=== PATIENT | male | born 1945 | race Caucasian/White ===

== ENCOUNTER 2017-06-12 13:35 | Emergency (ER) | payer MEDICARE, BC ==
[~2017-06-12] VITALS: Ht 185.4 cm; Wt 156.5 kg
[2017-06-12] MEDS ORDERED: METF500T4 (14:16)
[2017-06-12] MEDS ORDERED: LEVO50TA6 (14:16)
[2017-06-12] MEDS ORDERED: NIAC-4 (14:16)
[2017-06-12] MEDS ORDERED: OLOP2.5D (14:16)
[2017-06-12] MEDS ORDERED: EMPA1TAB3 (14:16)
[2017-06-12] MEDS ORDERED: ENAL20TA (14:16)
[2017-06-12] MEDS ORDERED: ROSU20TA (14:16)
[2017-06-12] MEDS ORDERED: TIMO5DRO5 (14:16)
[2017-06-12] MEDS ORDERED: INSU100I29 (14:16)
[2017-06-12] MEDS ORDERED: OLOP2.5D5 (14:16)
[2017-06-12] MEDS ORDERED: FURO20TA4 (14:16)
[2017-06-12] MEDS ORDERED: TADA20TA (14:16)
[2017-06-12] MEDS ORDERED: TIMO5DRO27 (14:16)
[2017-06-12] MEDS ORDERED: POTA10TA10 (14:16)
[2017-06-12] MEDS ORDERED: HYDR25TA4 (14:16)
[2017-06-12] MEDS ORDERED: EPIN5DRO10 (14:16)
--- NOTE | 2017-06-12 14:51 | ED Fall/Injury ---
General Chief Complaint: Upper Extremity Stated Complaint: L SHOULDER PAIN - FALL Nursing Triage Note: AMBULATED TO ROOM 06 WITH COMPLAINTS OF LEFT SHOULDER PAIN. STATES HE SLIPPED ON THE STAIRS HITTING HIS HEAD AND LEFT SHOULDER. DENIES LOC. STATES HE TAKES A LOW DOSE ASA DAILY. Source: patient, spouse Exam Limitations: no limitations History of Present Illness Time seen by provider: 14:47 Initial Comments Patient was going down a flight of steps and stumbled falling about 2 or 3 steps landing on his left shoulder and hitting his head. He did not lose consciousness haven't headache or any nausea or vomiting. He has no hematoma or swelling oror abrasions on his head. He is not on blood thinners. He is take aspirin however. He was unable to move his left arm at the shoulder second or pain. He can move his fingers and feel them okay however and is afraid that his left shoulder is either broken or out of place. He is having significant amount pain. Allergies and Home Medications Allergies Coded Allergies: Sulfa (Sulfonamide Antibiotics) (Verified Allergy, Unknown, 06/12/17) Home Medications Empagliflozin/Linagliptin 1 Each Tablet, #30 (Reported) Enalapril Maleate 20 Mg Tablet, #60 (Reported) Epinastine HCl 5 Ml Drops, #5 (Reported) Furosemide 20 Mg Tablet, #180 (Reported) Hydrochlorothiazide 25 Mg Tablet, #60 (Reported) Insulin Detemir 100 Unit/1 Ml Insuln.pen, #195 (Reported) Levothyroxine Sodium 50 Mcg Tablet, #30 (Reported) Metformin HCl 500 Mg Tablet, #120 (Reported) Niacin 500 Mg Tab.er.24h, #60 (Reported) Olopatadine HCl 2.5 Ml Drops, #3 (Reported) Olopatadine HCl 2.5 Ml Drops, #3 (Reported) Potassium Chloride 10 Meq Tablet.er, #90 (Reported) Rosuvastatin Calcium 20 Mg Tablet, #60 (Reported) Tadalafil 20 Mg Tablet, #10 (Reported) Timolol 5 Ml Drops, #5 (Reported) Timolol Maleate 5 Ml Drops, #5 (Reported) Constitutional: No chills, No diaphoresis, No fever, No malaise Eyes: Denies Blindness, Denies Blurred Vision, Denies Pain Ears, Nose, Mouth, Throat: denies ear pain, denies ear discharge Respiratory: No cough, No short of breath Cardiovascular: No chest pain, No Hx of Intervention, No palpitations Gastrointestinal: No abdominal pain, No constipation, No diarrhea, No nausea Genitourinary: No discharge, No dysuria Musculoskeletal: see HPI, No back pain, joint pain (left shoulder) Skin: No pruritus, No rash Psychiatric/Neurological: Denies Headache, Denies Numbness Past [place] Hx Patient Social History Alcohol Use: Denies Use Recreational Drug Use: No Smoking Status: Former Smoker Recent Foreign Travel: No Contact w/Someone Who Travel: No Recent Infectious Disease Expo: No Recent Hopitalizations: No Cardiovascular Cardiac Disorders: Hypertension Endocrine Endocrine Disorders: Diabetes, Insulin dep Physical Exam Vital Signs Vital Sign - Last 12Hours 06/12/17 14:00 Temp 98.0 Pulse 58 Resp 16 B/P (MAP) 150/83 Pulse Ox 94 Capillary Refill : Less Than 3 Seconds General Appearance: WD/WN, mild distress HEENT: PERRL/EOMI, pharynx normal Neck: non-tender, full range of motion, supple, normal inspection Cardiovascular: normal peripheral pulses, regular rate, rhythm, no edema Respiratory: chest non-tender, lungs clear Peripheral Pulses: 4+ Radial Pulses (R), 4+ Radial Pulses (L) Gastrointestinal: normal bowel sounds, non tender, soft Extremities: no pedal edema, normal capillary refill, other (left shoulder immobilized secondary to pain. Tenderness along the surgical neck of the humerus on the left side with mild deformity.) Neurologic/Psychiatric: no motor/sensory deficits, alert, oriented x 3, other ( neurovascularly intact distal to the left shoulder.) Skin: normal color, warm/dry Progress/Results/Core Measures Results/Orders My Orders Orders - TRINO ROSALES Shoulder, Left, 3 Views (06/12/17 14:52) Ct Head Wo (06/12/17 14:52) Fentanyl Injection (Sublimaze Injection (06/12/17 14:52) Saline Lock/Iv-Start (06/12/17 14:52) Vital Signs/I&O Vital Sign - Last 12Hours 06/12/17 14:00 Temp 98.0 Pulse 58 Resp 16 B/P (MAP) 150/83 Pulse Ox 94 Blood Pressure Mean: 105 Diagnostic Imaging Diagonstic Imaging: Xray Plain Films/CT/US/NM/MRI: other (left shoulder) Comments Proximal humerus fracture at the surgical neck on the left side with comminuted displacement of about 1-1/2 cm. Nonlinear fracture. NAME: MIKE LESLIE [facility] REC#: [id number] PHYSICIAN: TRINO ROSALES MD CC: PAIGE RAYMOND; TRINO ROSALES Page 1 of 1 RADIOLOGY REPORT VIA [place] CC: PAIGE RAYMOND; TRINO ROSALES Page 1 of 1 RADIOLOGY REPORT NAME: MIKE LESLIE [facility] REC#: [id number] PT STATUS: REG ER : 1945 PHYSICIAN: TRINO ROSALES MD ADMIT DATE: 06/12/17/ER Signed Date of Exam: 06/12/17 SHOULDER, LEFT, 3 VIEWS INDICATION: Left shoulder injury, pain. COMPARISON: None. FINDINGS: 3 views of left shoulder demonstrate a comminuted displaced fracture of the proximal humeral head and neck. There is no dislocation. The AC joint is intact. IMPRESSION: Left proximal humeral fracture. Dictated by: Dictated on workstation # [id number] Dict: 06/12/17 1532 Trans: 06/12/17 1542 Interpreted by: PAIGE RAYMOND Electronically signed by: PAIGE RAYMOND 06/12/17 1542 Reviewed: Reviewed by Me Diagonstic Imaging: CT Plain Films/CT/US/NM/MRI: head Comments No midline shift, mass effect, tumor, or intraparenchymal bleed. NAME: MIKE LESLIE [facility] REC#: [id number] PHYSICIAN: TRINO ROSALES MD CC: APIGE RAYMOND; TRINO ROSALES Page 1 of 1 RADIOLOGY REPORT VIA [place] CC: PAIGE RAYMOND; TRINO ROSALES Page 1 of 1 RADIOLOGY REPORT NAME: MIKE LESLIE [facility] REC#: [id number] PT STATUS: REG ER : 1945 PHYSICIAN: TRINO ROSALES MD ADMIT DATE: 06/12/17/ER Signed Date of Exam: 06/12/17 CT HEAD WO PROCEDURE: CT head without contrast. TECHNIQUE: Multiple contiguous axial images were obtained through the brain without the use of intravenous contrast. INDICATION: Fall, headache. COMPARISON: None. FINDINGS: Ventricles are normal in size, shape and position. There is no midline shift or mass effect. There is no hemorrhage or evidence of acute ischemia. No cerebral edema. There is no skull fracture. Mastoid air cells are clear. There is an air-fluid level in the left maxillary sinus. IMPRESSION: 1. No acute intracranial abnormality. 2. Left maxillary sinus disease. Dictated by: Dictated on workstation # [id number] Dict: 06/12/17 1535 Trans: 06/12/17 1542 Interpreted by: PAIGE RAYMOND Electronically signed by: PAIGE RAYMOND 06/12/17 1542 Reviewed: Reviewed by Me Departure Impression Impression: Primary Impression: Proximal humerus fracture Qualified Codes: S42.202A - Unspecified fracture of upper end of left humerus , initial encounter for closed fracture Additional Impression: Fall (on) (from) other stairs and steps, initial encounter Disposition: 01 HOME, SELF-CARE Condition: Improved Departure-Patient Inst. Decision time for Depature: 15:48 Referrals: ANDERSON BARNARD MD (PCP) Primary Care Physician Patient Instructions: Shoulder Fracture (DC) Add. Discharge Instructions: Wear the sling until released by your orthopedic surgeon. If you're having pain you can apply ice to the site and use 325 mg of Tylenol every 6 hours as needed. You can also use Naprosyn 2 capsules twice a day or ibuprofen 4 tablets every 8 hours. If this is not controlling your pain you can also use one half to one tablet of Percocet 10/325 mg every 6 hours as needed. While you're on Percocet you will have increased confusion and constipation. Do not mix this with alcohol and do not driving long road trips or operate heavy machinery. You should go chart picker some MiraLAX and take at least one dose a day while on opiates. You can go up to 4 times a day to control your constipation. If you' re having nausea you can take one tablet of Zofran and allowed to dissolve in your mouth every 6 hours as needed to control your nausea. You should return to the ER if you lose sensation in your left arm or hand or if you start changing colors in the hand or you have no palpable pulse. Plan to call Dr. Urbano at [address] [place] [address] orthopedics at [phone] Wednesday morning to get an appointment to be seen Wednesday or Wednesday. All discharge instructions reviewed with patient and/or family. Voiced understanding. Scripts Oxycodone HCl/Acetaminophen (Percocet 10-325 mg Tablet) 1 Each Tablet 1 EACH PO Q6H Y for BREAKTHROUGH PAIN, #20 TAB 0 Refills Prov: TRINO ROSALES 06/12/17 Ondansetron (Zofran Odt) 4 Mg Tab.rapdis 4 MG PO Q6H Y for NAUSEA/VOMITING-1ST LINE, #14 TAB 0 Refills Prov: TRINO ROSALES 06/12/17 Copy Copies To 1: ANDERSON BARNARD MD, TITUS J Jun 12, 2017 14:51
[2017-06-12] MEDS ORDERED: fentaNYL INJECTION 100 MCG/2 ML AMP IV STA (14:52)
--- NOTE | 2017-06-12 15:38 | Diagnostic Imaging Report ---
INDICATION: Left shoulder injury, pain. COMPARISON: None. FINDINGS: 3 views of left shoulder demonstrate a comminuted displaced fracture of the proximal humeral head and neck. There is no dislocation. The AC joint is intact. IMPRESSION: Left proximal humeral fracture. Dictated by: Dictated on workstation # [id number]
--- NOTE | 2017-06-12 15:41 | Diagnostic Imaging Report ---
PROCEDURE: CT head without contrast. TECHNIQUE: Multiple contiguous axial images were obtained through the brain without the use of intravenous contrast. INDICATION: Fall, headache. COMPARISON: None. FINDINGS: Ventricles are normal in size, shape and position. There is no midline shift or mass effect. There is no hemorrhage or evidence of acute ischemia. No cerebral edema. There is no skull fracture. Mastoid air cells are clear. There is an air-fluid level in the left maxillary sinus. IMPRESSION: 1. No acute intracranial abnormality. 2. Left maxillary sinus disease. Dictated by: Dictated on workstation # [id number]
[2017-06-12] MEDS ORDERED: ONDA4TAB8 PO (15:53)
[2017-06-12] MEDS ORDERED: OXYC-202 PO (15:53)
[2017-06-12 16:15] VITALS: BP 109/55
[2017-06-12] MEDS ORDERED: fentaNYL INJECTION 100 MCG/2 ML AMP IVP PRN (16:15)
== END 2017-06-12 16:15 | disposition home or self-care (01) ==
LOC: EDUNIT# 13:35 → ER 13:36
DX: S42.202A Unspecified fracture of upper end of left humerus, initial encounter for closed fracture (principal); I10 Essential (primary) hypertension; E11.9 Type 2 diabetes mellitus without complications; Z87.891 Personal history of nicotine dependence; Z79.82 Long term (current) use of aspirin; Z79.4 Long term (current) use of insulin; Z79.84 Long term (current) use of oral hypoglycemic drugs; W10.9XXA Fall (on) (from) unspecified stairs and steps, initial encounter
CPT/HCPCS: 70450; 73030

== ENCOUNTER 2017-06-16 12:30 | Outpatient (CLI) | payer MEDICARE ==
[~2017-06-16] VITALS: Ht 185.4 cm; Wt 159.2 kg
[~2017-06-16 12:30] MED LIST: EMPA1TAB3; ENAL20TA; EPIN5DRO10; FURO20TA4; HYDR25TA4; INSU100I29; LEVO50TA6; METF500T4; NIAC-4; OLOP2.5D; OLOP2.5D5; ONDA4TAB8 PO; OXYC-202 PO; POTA10TA10; ROSU20TA; TADA20TA; TIMO5DRO27; TIMO5DRO5
[2017-06-16 12:49] VITALS: BP 135/61
[2017-06-16 13:51] LABS: BILIRUBIN,URINE NEGATIVE (NEGATIVE); KETONES,URINE NEGATIVE (NEGATIVE); LEUKOCYTE ESTERASE ,URINE NEGATIVE (NEGATIVE); NITRITE,URINE NEGATIVE (NEGATIVE); PH,URINE 7 (5-9); PROTEIN,URINE NEGATIVE (NEGATIVE); UROBILINOGEN,URINE NORMAL (NORMAL)
[2017-06-16 13:59] LABS: PROTHROMBIN TIME PATIENT 12.8 SEC (12.2-14.7)
[2017-06-16 14:02] LABS: SQUAMOUS EPITHELIAL CELL,UR RARE /HPF
[2017-06-16 14:05] LABS: ANION GAP 11 MMOL/L (5-14); BLOOD UREA NITROGEN 17 MG/DL (7-18); BUN/CREATININE RATIO 23; CALCIUM 9.1 MG/DL (8.5-10.1); CARBON DIOXIDE 26 MMOL/L (21-32); CHLORIDE 100 MMOL/L (98-107); CREATININE SERUM 0.75 MG/DL (0.60-1.30); GFR ESTIMATED > 60; GLUCOSE 187 MG/DL (70-105); POTASSIUM 4.1 MMOL/L (3.6-5.0); SODIUM 137 MMOL/L (135-145)
[2017-06-16 14:17] LABS: BASOPHILS # (AUTO) 0.1 10^3/uL (0.0-0.1); BASOPHILS % (AUTO) 1 % (0-10); EOSINOPHILS # (AUTO) 0.4 10^3/uL (0.0-0.3); EOSINOPHILS % (AUTO) 4 % (0-10); LYMPHOCYTES % (AUTO) 31 % (12-44); MEAN CORPUSCULAR HEMOGLOBIN 29 PG (25-34); MEAN CORPUSCULAR HGB CONC 33 G/DL (32-36); MEAN CORPUSCULAR VOLUME 89 FL (80-99); MEAN PLATELET VOLUME 9.9 FL (7.4-10.4); MONOCYTES % (AUTO) 10 % (0-12); NEUTROPHILS # (AUTO) 5.4 X 10^3 (1.8-7.8); NEUTROPHILS % (AUTO) 55 % (42-75); PLATELET COUNT 231 10^3/uL (130-400); RED BLOOD COUNT 4.12 10^6/uL (4.35-5.85); WHITE BLOOD COUNT 9.8 10^3/uL (4.3-11.0)
--- NOTE | 2017-06-16 15:26 | Diagnostic Imaging Report ---
EXAMINATION: PA and lateral chest at 2:12 p.m. INDICATION: Preop. COMPARISON: There are no prior studies available for comparison. FINDINGS: The heart is mildly enlarged. On the PA view, there is a vague area of increased density overlying the periphery of the left lung base near the diaphragm. There is no corresponding abnormality seen on the lateral view and I suspect that that finding is related to a prominent apical epicardial fat pad. It would be unlikely that this finding is secondary to pneumonia/atelectasis or to neoplasm. If previous exams are available, they would be helpful for comparison. If there are no previous studies, then CT of the chest would be recommended for further evaluation. The left upper lung and right lung are generally clear. The mediastinum is not widened. The osseous structures are intact. IMPRESSION: 1. There is mild cardiomegaly but there is no acute abnormality identified. 2. The area of increased density near the apex of the heart is more likely due to an epicardial fat pad than to pneumonia/atelectasis or neoplasm. Recommendations as above. Dictated by: Dictated on workstation # [id number]
== END 2017-06-16 16:00 ==
LOC: PREOP 12:30
PROVIDERS: ATTEND Orthopaedic Surgery
DX: Z01.812 Encounter for preprocedural laboratory examination (principal); Z01.810 Encounter for preprocedural cardiovascular examination; Z01.811 Encounter for preprocedural respiratory examination; Z11.2 Encounter for screening for other bacterial diseases; S42.302A Unspecified fracture of shaft of humerus, left arm, initial encounter for closed fracture; X58.XXXA Exposure to other specified factors, initial encounter; I10 Essential (primary) hypertension
CPT/HCPCS: 36415; 71020; 80048; 81000; 85025; 85610; 86850; 86900; 86901; 87081

== ENCOUNTER → 2017-06-18 | Outpatient (CLI) | payer MEDICARE | LOC: CARD 15:04 | PROVIDERS: ATTEND Internal Medicine Cardiovascular Disease | DX: I48.2 Chronic atrial fibrillation (principal); E11.9 Type 2 diabetes mellitus without complications; E78.4 Other hyperlipidemia; I10 Essential (primary) hypertension | CPT/HCPCS: 93225; 93226 ==

== ENCOUNTER → 2017-06-21 | Outpatient (CLI) | payer MEDICARE | LOC: CARD 11:45 | PROVIDERS: ATTEND Internal Medicine Cardiovascular Disease | DX: I48.2 Chronic atrial fibrillation (principal); E11.9 Type 2 diabetes mellitus without complications; E78.4 Other hyperlipidemia; I10 Essential (primary) hypertension | CPT/HCPCS: 93306 ==

== ENCOUNTER 2017-06-24 11:24 | Day surgery (SDC) | payer MEDICARE ==
[~2017-06-24] VITALS: Ht 185.4 cm; Wt 159.2 kg
[~2017-06-24 11:24] MED LIST changes: -ENAL20TA; +ENAL20TA PO; -FURO20TA4; +FURO20TA4 PO; -HYDR25TA4; +HYDR25TA4 PO; -INSU100I29; +INSU100I29 SQ; -LEVO50TA6; +LEVO50TA6 PO; -METF500T4; +METF500T4 PO; -NIAC-4; +NIAC-4 PO; -OLOP2.5D5; +OLOP2.5D5 OU; -POTA10TA10; +POTA10TA10 PO; -ROSU20TA; +ROSU20TA PO; -TADA20TA; +TADA20TA PO; -TIMO5DRO5; +TIMO5DRO5 OU
[2017-06-24] MEDS ORDERED: ceFAZolin 2 GM/50 ML NS 50 ML ONE (11:35)
[2017-06-24] MEDS ORDERED: FAMOTIDINE 20MG/2ML IV (PEPCID) ONE (11:40)
[2017-06-24] MEDS: LACTATED RINGERS 1,000 ML IV PRN ×2 (11:40→12:50)
[2017-06-24] MEDS ORDERED: MIDAZOLAM 2 MG/2 ML (VERSED) VIAL ONE (11:40)
[2017-06-24] MEDS ORDERED: GLYCOPYRROLATE 0.2 MG/ML (ROBINUL) 2 ML VIAL ONE (11:40)
[2017-06-24] MEDS ORDERED: GENTAMICIN 40 MG/ML 2 ML INJ SDV ONE (11:59)
--- NOTE | 2017-06-24 12:11 | Progress Note-Pre Operative ---
Pre-Operative Progress Note H&P Reviewed The H&P was reviewed, patient examined and no changes noted. Date Seen by Provider: Jun 24, 2017 Time Seen by Provider: 12:10 Date H&P Reviewed: Jun 24, 2017 Time H&P Reviewed: 12:10 Pre-Operative Diagnosis: Left 3 part proximal humeral fracture GUILLERMO KAMARA MD Jun 24, 2017 12:11
[2017-06-24] MEDS ORDERED: NS IV 1000 ML 1,000 ML IV SCH (12:12)
[2017-06-24] MEDS ORDERED: 1/2 NS IV SOLUTION 1,000 ML IV SCH (12:12)
[2017-06-24] MEDS ORDERED: ONDANSETRON 4 MG/2 ML (SDV) Z0FRAN IV PRN ×2 (12:15)
[2017-06-24] MEDS ORDERED: NALOXONE 0.4 MG/ML 1 ML (NARCAN) VIAL IV PRN (12:15)
[2017-06-24] MEDS ORDERED: diphenhydrAMINE 50 MG/ML INJ (BENADRYL) IV PRN (12:15)
[2017-06-24] MEDS ORDERED: METOCLOPRAMIDE INJ 10 MG/2 ML (REGLAN) IV PRN ×2 (12:15)
[2017-06-24] MEDS ORDERED: oxyCODONE/APAP 5/325MG (PERCOCET 5) TABLET PO PRN (12:15)
--- NOTE | 2017-06-24 12:32 | Anesthesia-Peripheral Nerve Bl ---
Procedure Start/Stop Time Date of Procedure: Jun 24, 2017 Start Time: 12:15 Referring Physician: Sundeep Stop Time: 12:25 Peripheral Nerve Block Peripheral Nerve Blockade Risk/Benefits/Alternatives discussed, including IV injection leading to complications or seizures, nerve irritation or damage, pneumothorax, total spinal anesthesia, injection, and/or bleeding. Side Confirmed: LEFT Indication: Analgesia Specifically requested for management of pain by:Sundeep Patient Condition Patient Condition: Sedate/contact maintained Procedure Prepartation: Chlorhexidine Position: Supine [place]: Short-bevel Needle (s) Size: 22g 2" Technique: Injection through needle, Nerve Stimulation Motor response or parethesia o: Motor response Deltoid mA: 0.4 Depth (cm): 2.5 Sedation Given: Midazolam (2mg) Injectate: ropivacaine Concentration %: 0.5 Volume (ml): 30 Narrative Injection was made incrementally with constant monitoring. Aspiration every (mls): 5 Blood Aspirated: No Pain on injection noted: No Normal Resistance on injection: Yes Events Events: None:easy well tolerated Sucess: Full evaluation-pending Patient Conditon Post Peripheral Nerve Block Post Peripheral Nerve Block Vital Signs: Blood Pressure: Systolic Diastolic Heart Rate READING,JUANITA Kumar CRNA Jun 24, 2017 12:32
[2017-06-24] MEDS ORDERED: CATHETER FLUSH 10 ML SYR IV PRN (12:45)
[2017-06-24] MEDS ORDERED: ceFAZolin 2 GM/NS 50 ML IV ONE (12:45)
[2017-06-24] MEDS ORDERED: ATRACURIUM 50 MG/5 ML (TRACRIUM) IV ONE (12:57)
[2017-06-24] MEDS ORDERED: VITAMIN B-12 PO (13:05)
[2017-06-24] MEDS ORDERED: MULT1TAB69 PO (13:05)
[2017-06-24] MEDS ORDERED: FOLIC ACID PO (13:05)
[2017-06-24] MEDS ORDERED: ONDA4TAB11 SL (13:05)
[2017-06-24] MEDS ORDERED: ACET-93 PO (13:05)
[2017-06-24] MEDS ORDERED: FLAX1000 PO (13:05)
[2017-06-24] MEDS ORDERED: HYDR-3816 PO (13:05)
[2017-06-24] MEDS ORDERED: VITAMIN B-6 PO (13:05)
[2017-06-24] MEDS ORDERED: ASPI-983 PO (13:05)
[2017-06-24] MEDS ORDERED: APIX5TAB PO (13:07)
[2017-06-24 13:11] VITALS: BP 146/94
[2017-06-24] MEDS ORDERED: MIDAZOLAM 2 MG/2 ML (VERSED) VIAL IV ONE (13:15)
[2017-06-24] MEDS ORDERED: GLYCOPYRROLATE 0.2 MG/ML (ROBINUL) 2 ML VIAL IV ONE (13:15)
[2017-06-24] MEDS ORDERED: FAMOTIDINE 20MG/2ML IV (PEPCID) IV ONE (13:15)
--- NOTE | 2017-06-24 14:37 | Progress Note-Post Operative ---
Post-Operative Progess Note Surgeon (s)/Nurse Practitioner Per Diem (s) Surgeon GUILLERMO KAMARA MD Nurse Practitioner Per Diem: MEDARDO ESQUIVEL PA-C Pre-Operative Diagnosis Left 3 part proximal humeral fracture Post-Operative Diagnosis same Procedure & Operative Findings Date of Procedure 06/24/17 Procedure Performed/Findings Hemiarthroplasty left shoulder and tuberosity repair Anesthesia Type General endotracheal anesthesia with interscalene nerve block. Estimated Blood Loss Estimated blood loss (mL): 200 ML Specimens/Packing Specimens Removed none Packing: none GUILLERMO KAMARA MD Jun 24, 2017 14:37
--- NOTE | 2017-06-24 14:58 | Discharge Inst-Surgical ---
Discharge Inst-Surgical Depart Medication/Instructions New, Converted or Re-Newed RX: RX on Chart Consults/Follow Up Goal/Follow Up Appt.: Follow up with Dr. Urbano in 10-14 days Patient Instructions: Leave incision open to air if no drainage. Use polar care unit for icing the shoulder as needed for 30 minutes at a time Keep incision dry for 7 days. Then, it is okay to get it wet in the shower. No lifting left shoulder. It is okay to move the wrist, hand, and elbow. Activity Activity as Tolerated: No no lifing left arm. Activity Instructions: Avoid Pulling & Pushing, Avoid Stress to Incision Elevate Extremity: Elevate as Instructed Driving Instructions: No Driving for 2 Weeks No Driving When on Pain Meds: Yes Incentive Spirometry: Every 2 Hours While Awake, For 2 weeks Diet Discharge Diet: ADA Diet Diet for 24 Hours: No Alcohol Diet After 24 Hours: Resume Home Diet Return to The Hospital For: Shortness of breath, chest pain Symptoms to Report to Physicia: Extremity Discoloration, Numbness/Tingling, Swelling Increased, Bleeding Excessive, Pain Increased, Fever Over 101 Degrees F Skin/Wound Care Infection Signs and Symptoms: Increased Redness, Foul Odor of Wound, Increased Drainage, Skin Itchy or Has a Rash Bathing Instructions: Shower Operative Area Clean and Dry: You May Remove Bandage Steristrips: Will Fall Off in 1-2 Wks Polar Care: Yes-As Instructed GUILLERMO URBANO MD Jun 24, 2017 14:58
[2017-06-24] MEDS ORDERED: morphine INJ 10 MG/ML 1ML (SYR OR VIAL) IVP PRN (15:00)
[2017-06-24] MEDS ORDERED: morphine PCA 30 MG/30 ML VIAL IV PRN (15:00)
[2017-06-24 16:00] VITALS: BP 150/71
[2017-06-24] MEDS: oxyCODONE/APAP 10/325MG (PERCOCET 10) TABLET PO PRN ×2 (16:14→21:47)
[2017-06-24] MEDS ORDERED: OLOPATADINE HCL OU PRN (17:00)
[2017-06-24] MEDS ORDERED: ACETAMINOPHEN 500 MG TAB (TYLENOL) PO PRN (17:00)
--- NOTE | 2017-06-24 17:13 | Diagnostic Imaging Report ---
EXAMINATION: AP view of the left shoulder. INDICATION: Postoperative evaluation. FINDINGS: There is a left shoulder replacement prosthesis with the humerus component in good position. There is no glenoid the component identified on this image. The overall alignment based on this single projection appears satisfactory. IMPRESSION: Postsurgical replacement appears in good alignment with the prosthesis seen well-seated in the proximal left humerus. Dictated by: Dictated on workstation # [id number]
[2017-06-24] MEDS ORDERED: PATIENT MAY USE OWN MEDS, ALL MC SCH (17:15)
[2017-06-24] MEDS: ceFAZolin 2 GM/50 ML NS 50 ML IV SCH ×2 (18:00→21:48)
[2017-06-24 19:49] VITALS: BP 143/66
[2017-06-24] MEDS ORDERED: ROSUVASTATIN 20 MG (CRESTOR) TABLET PO SCH (21:00)
[2017-06-24] MEDS: DOCUSATE SODIUM 100 MG (COLACE) CAP PO SCH (21:47)
[2017-06-24] MEDS: metFORMIN 500 MG (GLUCOPHAGE) TAB PO SCH (21:49)
[2017-06-24] MEDS: APIXABAN 5 MG (ELIQUIS) TABLET PO SCH (21:50)
[2017-06-24] MEDS: INSULIN DETEMIR SQ SCH (21:52)
[2017-06-24 23:48] VITALS: BP 141/69
--- NOTE | 2017-06-25 00:29 | OPERATIVE REPORT ---
DATE OF SERVICE: 06/24/2017 PREOPERATIVE DIAGNOSIS: Left 3-part proximal humerus fracture. POSTOPERATIVE DIAGNOSIS: Left 3-part proximal humerus fracture. PROCEDURE: Hemiarthroplasty of left shoulder with repair of lesser and greater tuberosities. SURGEON: GUILLERMO KAMARA MD DENTAL INSURANCE COORDINATOR: MEDARDO ESQUIVEL PA-C DENTAL INSURANCE COORDINATOR'S DUTIES: Patient positioning, retraction, wound closure, application of sterile dressings, use of assist as medically indicated. ANESTHESIA: General with use of an interscalene nerve block as medically indicated for postoperative pain control and an anesthesia provider was consulted for placement of the block. BLOOD LOSS: 200 mL. SPECIMENS: None. COMPLICATIONS: None. IMPLANTS: Integra [employer] hemiarthroplasty with a size 16 pressfit humeral stem, a small proximal fracture body, a 48 x 18 eccentric humeral head. INDICATIONS: This man had a bad fall 10 days ago and sustained a comminuted proximal humerus fracture. He comes to the operating room for repair of the fracture with the hemiarthroplasty. PROCEDURE IN DETAIL: After informed consent, the patient was transported to the operating room. He was placed on the operative table in supine position. General anesthesia was induced. He was positioned supine using the shoulder attachment with the head in the headrest and the back raised up at about 45 degrees. Due to his large stature and wide chest, the shoulder could be extended off the side of the shoulder table without removal of the scapular support. Once the upper extremity was prepped with chloraprep and draped in sterile fashion, an oblique incision was made at the left anterior shoulder and was carried out through subcutaneous tissues down to the deltopectoral interval. Deltopectoral interval was opened by blunt dissection. The cephalic vein was retracted. The clavipectoral fascia was opened. Hematoma extruded. Blunt dissection was carried around the proximal humerus so that the self-retaining Kolbel retractor to be placed with a medial blade on the conjoined tendon, lateral blade on the deltoid. The proximal humeral fragments were dissected out the long head of the biceps was released, bicep sheath was opened and the rotator interval was opened between the tuberosities. The lesser tuberosity was somewhat fragmented and there was still lesser tuberosity and attached to the head fragment. A sagittal saw was used to perform lesser tuberosity osteotomy and separate this piece from the humeral head and #5 Ethibond sutures were placed in the lesser tuberosity. The greater tuberosity was still attached to the anatomic neck fragment. This was dislodged from the head using the sagittal saw and osteotome and then the head was removed. The shoulder was thoroughly irrigated. The humeral shaft was inspected, looked like the calcar had fractured off with the butterfly fragment, however, that was not the case. The calcar actually was intact. This fragment was a separate fragment between the tuberosities. This was removed, exposed the tuberosities. The biceps stump was removed. The shaft of the humerus was then opened with the T-handle followed by broaches up to a size 15 and then finally a 16 and I placed a short fracture proximal body because the alignment looked like the head would be right off the calcar with a short fracture body. This trial was placed 30 degrees retroversion. The shoulder was reduced and several head pieces were trialed and it appeared that the 48 x 18 eccentric head fit nicely in the glenoid and allowed for the tuberosities to be pulled around and reattached. The trial components then were removed. The shoulder was thoroughly irrigated with pulse lavage. The stem and proximal body were assembled on the back table, impacted and the locking bolt was placed. The stem was then impacted for a good pressfit at 30 degrees retroversion. Next, a #5 Ethibond suture was sutured through the greater tuberosity and run through the calcar hole in the stem and then run out through the lesser tuberosity. The head then was impacted onto the prosthesis and the shoulder was reduced. The greater tuberosity was pulled around to the appropriate position and then the sutures in the greater tuberosity were placed through the holes in the stem to suture the tuberosity down to the stem. They were tied tightly and then the circumferential suture that went through both tuberosities and the calcar hole was tied down tightly. Then the 2 sutures within the lesser tuberosity were sutured to the greater tuberosity to close the fragments together and the sutures were cut short with the knots. Finally, drill holes were made in the humeral shaft and additional #5 Ethibond sutures were placed through the drill holes and sutured around the lesser and greater tuberosities and rotator interval in a pursestring type fashion and were tied down tightly. The shoulder was internally and externally rotated and the fragments moved as a unit with the shaft. The wound then was closed with a running #1 Vicryl for the deltopectoral interval, a running 2-0 Vicryl for subcutaneous tissues and subcuticular 3-0 monofilament absorbable suture on the skin followed by Steri-Strips, sterile dressings were applied. The patient was placed in a sling and transferred to the recovery room in stable condition. Job ID: [id number] DocumentID: [id number] Dictated Date: 06/24/2017 14:35:21 Sap Ppm Consultant Date: 06/24/2017 20:56:48 Dictated By: GUILLERMO KAMARA MD
[2017-06-25] MEDS: oxyCODONE/APAP 10/325MG (PERCOCET 10) TABLET PO PRN ×4 (02:45→14:30)
[2017-06-25 05:30] VITALS: BP 141/63
[2017-06-25 05:32] LABS: BASOPHILS # (AUTO) 0.1 10^3/uL (0.0-0.1); BASOPHILS % (AUTO) 0 % (0-10); EOSINOPHILS # (AUTO) 0.1 10^3/uL (0.0-0.3); EOSINOPHILS % (AUTO) 1 % (0-10); LYMPHOCYTES # (AUTO) 3.2 X 10^3 (1.0-4.0); LYMPHOCYTES % (AUTO) 23 % (12-44); MEAN CORPUSCULAR HEMOGLOBIN 29 PG (25-34); MEAN CORPUSCULAR HGB CONC 32 G/DL (32-36); MEAN CORPUSCULAR VOLUME 91 FL (80-99); MEAN PLATELET VOLUME 9.3 FL (7.4-10.4); MONOCYTES # (AUTO) 1.5 X 10^3 (0.0-1.0); MONOCYTES % (AUTO) 11 % (0-12); NEUTROPHILS # (AUTO) 9.3 X 10^3 (1.8-7.8); NEUTROPHILS % (AUTO) 65 % (42-75); PLATELET COUNT 308 10^3/uL (130-400); RED BLOOD COUNT 4.01 10^6/uL (4.35-5.85); RED CELL DISTRIBUTION WIDTH 13.8 % (10.0-14.5); WHITE BLOOD COUNT 14.2 10^3/uL (4.3-11.0)
[2017-06-25 05:56] LABS: ALANINE AMINOTRANSFERASE 14 U/L (0-55); ALBUMIN 3.3 GM/DL (3.2-4.5); ANION GAP 11 MMOL/L (5-14); ASPARTATE AMINO TRANSFERASE 18 U/L (5-34); BLOOD UREA NITROGEN 12 MG/DL (7-18); BUN/CREATININE RATIO 17; CALCIUM 8.6 MG/DL (8.5-10.1); CARBON DIOXIDE 22 MMOL/L (21-32); CHLORIDE 102 MMOL/L (98-107); CREATININE SERUM 0.69 MG/DL (0.60-1.30); GFR ESTIMATED > 60; GLUCOSE 137 MG/DL (70-105); POTASSIUM 4.2 MMOL/L (3.6-5.0); SODIUM 135 MMOL/L (135-145); TOTAL PROTEIN 6.2 GM/DL (6.4-8.2)
[2017-06-25] MEDS: ceFAZolin 2 GM/50 ML NS 50 ML IV SCH (06:08)
[2017-06-25 08:17] VITALS: BP 136/60
[2017-06-25] MEDS ORDERED: KCL 10 MEQ TAB (MICRO K) PO SCH (09:00)
[2017-06-25] MEDS ORDERED: SENNA W/DOCUSATE (SENOKOT S) TABLET PO SCH (09:00)
[2017-06-25] MEDS ORDERED: TIMOLOL MALEATE 0.5% 5 ML (TIMOPTIC) BTL OU SCH ×3 (09:00→21:00)
[2017-06-25] MEDS ORDERED: ENALAPRIL MALEATE 20 MG PO SCH (09:00)
[2017-06-25] MEDS ORDERED: HYDROCHLOROTHIAZIDE 25 MG (HCTZ) TAB PO SCH (09:00)
[2017-06-25] MEDS ORDERED: NIACIN ER (NIASPAN) 500 MG TAB PO SCH (09:00)
[2017-06-25] MEDS ORDERED: FUROSEMIDE 20 MG (LASIX) TAB PO SCH (09:00)
[2017-06-25] MEDS ORDERED: LEVOTHYROXINE 50 MCG (LEVOTHROID) TAB PO SCH (09:00)
[2017-06-25] MEDS: DOCUSATE SODIUM 100 MG (COLACE) CAP PO SCH (09:14)
[2017-06-25] MEDS: APIXABAN 5 MG (ELIQUIS) TABLET PO SCH (09:15)
[2017-06-25] MEDS: metFORMIN 500 MG (GLUCOPHAGE) TAB PO SCH (09:18)
[2017-06-25] MEDS: INSULIN DETEMIR SQ SCH (09:23)
[2017-06-25] MEDS ORDERED: EPIN5DRO10 OU (10:23)
[2017-06-25] MEDS ORDERED: EMPA1TAB3 PO (10:23)
--- NOTE | 2017-06-25 11:07 | Consultation-Hospitalist ---
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 He required 12 day delay for surgery due to the extensive edema and inflammation from the complex fracture and crush- type fracture. During pre-op screening an EKG documented AF and he had no prior heart condition medical problems. Dr Jones was consulted and he was placed on anti-coagulation for stroke prophylaxis and underwent EKG, Holter and ECHO. I suggested a sleep study as out-pt due to his risk factors and new onset AF that is rate-controlled. Date Seen 06/25/17 Attending Physician Trent Urbano MD PCP Kameron Thomason MD Referring Physician Date of Admission Jun 24, 2017 at 11:24 Home Medications & Allergies Home Medications Reviewed patient Home Medication Reconciliation Form Allergies Allergies Coded Allergies Sulfa (Sulfonamide Antibiotics) (Verified Allergy, Unknown, 06/16/17) Past Uydnogz-Jfixmf-Giitfo Hx Patient Social History Marrital Status: Employed/Student: retired (41 years at [employer] Psychology dept) Alcohol Use: Occasionally Uses Recreational Drug Use: No Smoking Status: Former Smoker Physical Abuse Screen: No Sexual Abuse: No Recent Foreign Travel: No Contact w/other who traveled: No Recent Hopitalizations: No Recent Infectious Disease Expo: No Seasonal Allergies Seasonal Allergies: Yes Surgeries HX Surgeries: Yes Surgeries: Orthopedic Respiratory Hx Respiratory Disorders: No (but JAMILAH suspected at this admit) Cardiovascular Hx Cardiovascular Disorders: Yes Cardiac Disorders: Atrial Fibrillation (newly dx 07/01 in pre-op for left shoulder surgery), High Cholesterol, Hypertension Neurological Hx Neurological Disorders: No Reproductive System Sexually Transmitted Disease: Yes HIV/AIDS: No Genitourinary Hx Genitourinary Disorders: No Gastrointestinal Hx Gastrointestinal Disorders: No Musculoskeletal Hx Musculoskeletal Disorders: Yes Musculoskeletal Disorders: Arthritis Endocrine Hx Endocrine Disorders: Yes Endocrine Disorders: Diabetes, Insulin dep HEENT HX ENT Disorders: No Loss of Vision: Bilateral Hearing Impairment: Hard of Hearing Cancer Hx Cancer: No Psychosocial Hx Psychiatric Problems: No Integumentary HX Skin/Integumentary Disorder: No Blood Transfusions Adverse Reaction to a Blood Tr: No Review of Systems Constitutional: see HPI EENTM: no symptoms reported Respiratory: no symptoms reported Cardiovascular: no symptoms reported Gastrointestinal: no symptoms reported Genitourinary: no symptoms reported Musculoskeletal: joint pain (left shoulder) Skin: no symptoms reported Psychiatric/Neurological: No Symptoms Reported Physical Exam Physical Exam Vital Signs Vital Sign - Last 12Hours 06/24/17 06/24/17 13:11 16:44 Temp 98.1 Pulse 73 Resp 16 B/P (MAP) 146/94 Pulse Ox 98 O2 Delivery Room Air O2 Flow Rate 2.00 Capillary Refill : Less Than 3 Seconds General Appearance: No Apparent Distress, WD/WN, Chronically ill, Obese Eyes: Bilateral Eye Normal Inspection, Bilateral Eye PERRL HEENT: PERRL/EOMI, Normal ENT Inspection, Pharynx Normal Neck: Full Range of Motion, Normal Inspection, Non Tender, Supple, Carotid Bruit Respiratory: Chest Non Tender, Lungs Clear, No Accessory Muscle Use, No Respiratory Distress, Crackles (LLL subtle) Cardiovascular: No Edema, No Gallop, No JVD, No Murmur, Normal Peripheral Pulses, Irregularly Irregular Gastrointestinal: Normal Bowel Sounds, No Organomegaly, No Pulsatile Mass, Non Tender, Soft Back: Normal Inspection, No CVA Tenderness, No Vertebral Tenderness Extremity: Normal Capillary Refill, Normal Inspection, Normal Range of Motion ( except left arm in sling), Non Tender, No Calf Tenderness, No Pedal Edema Neurologic/Psychiatric: Alert, Oriented x3, No Motor/Sensory Deficits, Normal Mood/Affect Skin: Normal Color, Warm/Dry Lymphatic: No Adenopathy Results Results/Procedures Lab Laboratory Tests 06/25/17 05:10 Assessment/Plan Admission Diagnosis Assessment: s/p uncomplicated left humerus fracture repair per Dr Urbano POD # 1 after fracture sustained in a fall down stairs 12 days ago and surgery delayed due to severe edema and inflammation New onset AF found in pre-op managed by Dr Jones and placed on anti- coagulation Eliquis to prevent CVA Presumed JAMILAH needs sleep study as out patient Hypothyroidism DM HTN HLP Obesity Chronic edema Assessment and Plan Plan: Restarted anti-coagulation for CVA prophylaxis Resume all home meds Needs sleep study as out-patient given risk factors and now new onset AF Clinical Quality Measures DVT/VTE Risk/Contraindication: Risk Factor Score Per Nursin RFS Level Per Nursing on Admit: 3=High CAL BARRERA DO Jun 25, 2017 11:07
[2017-06-25 12:00] VITALS: BP 108/63
--- NOTE | 2017-06-25 14:22 | Anesthesia-General Post-Op ---
General Patient Condition Mental Status/LOC: Same as Preop Cardiovascular: Satisfactory Nausea/Vomiting: Absent Respiratory: Satisfactory Pain: Controlled Complications: Absent Post Op Complications Complications None Follow Up Care/Instructions Patient Instructions None needed. Anesthesia/Patient Condition Patient Condition Patient is doing well, no complaints, stable vital signs, no apparent adverse anesthesia problems. Pt is ready for discharge to home. Neurovascular intact after block. Interscalene block worked well per patient, more pain now after it has worn off as expected. CARYL AYALA DO Jun 25, 2017 14:22
[2017-06-25] MEDS ORDERED: OXYC-465 PO (14:55)
== END 2017-06-25 15:36 | disposition home or self-care (01) ==
LOC: UNDOADMOB 11:24 → INTOOBSV 11:24 → SDC 11:24 → 4TH 11:24 → SURG 11:25 → 4TH 11:25 → SURG 11:25 → EDSTATUS 13:00 → 4TH 16:29 → SURG 16:29 → 4TH 16:29 → SDC 06-25 15:36 → UNDODISOB 06-25 15:36
PROVIDERS: ATTEND Orthopaedic Surgery
DX: S42.232A 3-part fracture of surgical neck of left humerus, initial encounter for closed fracture (principal); E11.9 Type 2 diabetes mellitus without complications; I10 Essential (primary) hypertension; E78.5 Hyperlipidemia, unspecified; I48.91 Unspecified atrial fibrillation; E03.9 Hypothyroidism, unspecified; R60.0 Localized edema; E66.9 Obesity, unspecified; Z68.42 Body mass index [BMI] 45.0-49.9, adult; Z79.4 Long term (current) use of insulin; Z79.899 Other long term (current) drug therapy; W10.9XXA Fall (on) (from) unspecified stairs and steps, initial encounter; Y92.019 Unspecified place in single-family (private) house as the place of occurrence of the external cause
CPT/HCPCS: 36415; 73020; 80053; 82962; 85025; 94664

== ENCOUNTER → 2017-07-14 | Outpatient (CLI) | payer MEDICARE ==
[~2017-07-14] MED LIST changes: +ACET-93 PO; +APIX5TAB PO; +ASPI-983 PO; +EMPA1TAB3 PO; +EPIN5DRO10 OU; +FLAX1000 PO; +FOLIC ACID PO; +HYDR-3816 PO; +MULT1TAB69 PO; +ONDA4TAB11 SL; +OXYC-465 PO; +VITAMIN B-12 PO; +VITAMIN B-6 PO
--- NOTE | 2017-07-14 14:26 | Diagnostic Imaging Report ---
INDICATION: Pain and swelling. Previous injury. COMPARISON: None. FINDINGS: Three views of the left hand show no fractures, dislocations, or other acute bony abnormalities identified. Joint spaces are well maintained throughout. There is moderate generalized soft tissue swelling. No radiopaque foreign bodies are identified. IMPRESSION: Moderate generalized soft tissue swelling of the left hand, but no radiographic evidence of acute fracture or dislocation. Dictated by: Dictated on workstation # [id number]
== END ==
LOC: RAD 14:03
PROVIDERS: ATTEND Family Medicine
DX: M79.89 Other specified soft tissue disorders (principal); M79.642 Pain in left hand
CPT/HCPCS: 73130

== ENCOUNTER → 2017-08-03 | Outpatient (CLI) | payer MEDICARE ==
[~2017-08-03] MED LIST changes: +CATHETER FLUSH 10 ML SYR IV PRN; +REGADENOSON 0.4 MG/5 ML SYR (LEXISCAN) IV ONE
[2017-08-03 12:58] VITALS: BP 143/86
--- NOTE | 2017-08-05 08:38 | STRESS TEST ---
DATE OF SERVICE: 08/03/2017 PROCEDURE: Resting and post-regadenoson technetium-99M tetrofosmin SPECT CT imaging. ORDERING PHYSICIAN: Alexis Jones MD, MAGY, FACP, FACC PRIMARY PHYSICIAN: Dr. Thomason. CLINICAL DIAGNOSES: Paroxysmal atrial fibrillation, hypertension, diabetes, shortness of breath, leg swelling, obesity. Baseline images were carried out after injection of 10.39 mCi of technetium-99M tetrofosmin. This was followed by 0.4 mg regadenoson and 29.1 mCi of technetium-99M tetrofosmin for stress imaging. The electrocardiogram showed sinus rhythm with right bundle branch block at baseline and it did not change significantly with the regadenoson infusion. Overall, the patient tolerated the procedure well. The patient was not able to lift his left arm for imaging because of recent left shoulder surgery. That, in combination with obesity and elevated body mass index, made the study difficult. On the views available, there appears to be a patchy tracer uptake both at rest and following regadenoson infusion. There does not, however, appear to be significant perfusion defect. Gated images show well preserved global left ventricular systolic function and left ventricular ejection fraction is calculated to be 77%. CONCLUSION: 1. Technically difficult study due to patient's body habitus and inability to lift the left arm for imaging. 2. No distinct evidence of significant myocardial ischemia or infarction. 3. Normal global left ventricular systolic function with a calculated ejection fraction of 77%. Job ID: [id number] DocumentID: [id number] Dictated Date: 08/03/2017 16:00:30 Medical Instrument Technician Date: 08/04/2017 07:14:25 Dictated By: ALEXIS JONES MD, MAGY, FACP, FACC,
== END ==
LOC: CARD 11:08
PROVIDERS: ATTEND Internal Medicine Cardiovascular Disease
DX: I48.0 Paroxysmal atrial fibrillation (principal); I10 Essential (primary) hypertension; E11.9 Type 2 diabetes mellitus without complications; G47.30 Sleep apnea, unspecified; E66.09 Other obesity due to excess calories; M79.89 Other specified soft tissue disorders
CPT/HCPCS: 78452; 93017

== ENCOUNTER 2017-08-05 14:35 | Outpatient (CLI) | payer MEDICARE ==
[~2017-08-05 14:35] MED LIST changes: -CATHETER FLUSH 10 ML SYR IV PRN; -REGADENOSON 0.4 MG/5 ML SYR (LEXISCAN) IV ONE
== END 2017-08-05 15:11 | disposition home or self-care (01) ==
LOC: RAD 14:35
PROVIDERS: ATTEND Nurse Practitioner
DX: I48.2 Chronic atrial fibrillation; I10 Essential (primary) hypertension; R06.83 Snoring

== ENCOUNTER 2017-08-12 13:44 | Outpatient (RCR) | payer MEDICARE | END 2017-08-14 | disposition home or self-care (01) | PROVIDERS: ATTEND Physician Assistant | DX: Z47.1 Aftercare following joint replacement surgery (principal); Z96.612 Presence of left artificial shoulder joint ==

== ENCOUNTER 2017-10-14 20:36 | Outpatient (CLI) | payer MEDICARE | END 2017-10-15 05:05 | disposition home or self-care (01) | LOC: SLEEP 20:36 | PROVIDERS: ATTEND Otolaryngology Otolaryngology/Facial Plastic Surgery | DX: G47.33 Obstructive sleep apnea (adult) (pediatric) (principal); R06.83 Snoring; I10 Essential (primary) hypertension; G47.10 Hypersomnia, unspecified | CPT/HCPCS: 95811 ==

== ENCOUNTER 2017-11-11 10:45 | Outpatient (RCR) | payer MEDICARE | END 2017-11-11 11:23 | disposition home or self-care (01) | PROVIDERS: ATTEND Physician Assistant | DX: Z47.1 Aftercare following joint replacement surgery (principal); Z96.612 Presence of left artificial shoulder joint ==

== ENCOUNTER → 2018-03-31 | Outpatient (CLI) | payer MEDICARE ==
[~2018-03-31] MED LIST changes: +HYDR-34 PO; -HYDR-3816 PO; -METF500T4 PO; +METF500T5 PO
== END ==
LOC: RAD 16:02
PROVIDERS: ATTEND Family Medicine
DX: Z53.8 Procedure and treatment not carried out for other reasons (principal); M54.16 Radiculopathy, lumbar region; M25.561 Pain in right knee

== ENCOUNTER 2018-05-03 13:56 | Outpatient (CLI) | payer MEDICARE ==
[~2018-05-03] VITALS: Ht 185.4 cm; Wt 152.0 kg
[2018-05-03 14:24] VITALS: BP 141/65
== END 2018-05-03 14:53 | disposition home or self-care (01) ==
LOC: PREOP 13:56
PROVIDERS: ATTEND Orthopaedic Surgery
DX: Z01.818 Encounter for other preprocedural examination (principal)
CPT/HCPCS: 87081

== ENCOUNTER 2018-08-11 15:55 | Outpatient (RCR) | payer MEDICARE ==
[~2018-08-11 15:55] MED LIST changes: -FLAX1000 PO; +FLAX10004 PO; +HYDR-3816 PO; +METF-397 PO; -METF500T5 PO; -OXYC-202 PO; +OXYC1TAB12 PO
== END 2018-08-14 | disposition home or self-care (01) ==
PROVIDERS: ATTEND Orthopaedic Surgery Orthopaedic Surgery of the Spine
DX: M48.061 Spinal stenosis, lumbar region without neurogenic claudication (principal)

== ENCOUNTER 2018-09-08 11:20 | Outpatient (RCR) | payer MEDICARE | END 2018-09-08 12:50 | disposition home or self-care (01) | PROVIDERS: ATTEND Orthopaedic Surgery Orthopaedic Surgery of the Spine | DX: M48.061 Spinal stenosis, lumbar region without neurogenic claudication (principal) ==

== ENCOUNTER 2019-01-18 05:50 | Outpatient (CLI) | payer MEDICARE ==
[~2019-01-18] VITALS: Ht 185.4 cm; Wt 156.5 kg
[~2019-01-18 05:50] MED LIST changes: -ROSU20TA PO; +ROSU20TA2 PO
[2019-01-18] MEDS ORDERED: FURO40TA4 PO (13:05)
[2019-01-18] MEDS ORDERED: ACET-93 PO (13:05)
== END 2019-01-18 13:10 | disposition home or self-care (01) ==
LOC: PREOP 05:50
PROVIDERS: ATTEND Surgery
DX: Z01.818 Encounter for other preprocedural examination (principal)

== ENCOUNTER 2019-01-25 09:25 | Day surgery (SDC) | payer MEDICARE ==
[~2019-01-25] VITALS: Ht 185.4 cm; Wt 156.5 kg
[~2019-01-25 09:25] MED LIST changes: +FURO40TA4 PO
[2019-01-25] MEDS ORDERED: NS IV 500 ML 500 ML ONE ×2 (09:38→13:36)
[2019-01-25 09:40] VITALS: BP 151/72
[2019-01-25] MEDS ORDERED: MIDAZOLAM 2 MG/2 ML (VERSED) VIAL IVP ONE (09:45)
[2019-01-25] MEDS ORDERED: LIDOCAINE JELLY 2% 6 ML SYRINGE MM PRN (09:45)
[2019-01-25] MEDS ORDERED: fentaNYL INJECTION 100 MCG/2 ML AMP IVP ONE (09:45)
[2019-01-25] MEDS: NS IV 500 ML 500 ML IV PRN ×2 (10:00→13:40)
--- NOTE | 2019-01-25 10:57 | Conscious Sedation/ASA ---
Conscious Sedation Pre-Proced Time 10:30 ASA Score 2 For ASA 3 and 4: Consider anesthesia and medical clearance. Also, for patients with a history of failed moderate sedation consider anesthesia. Airway Lungs Heart ASA score ASA 1: a normal healthy patient ASA 2: a patient with a mild systemic disease (mid diabetes, controlled hypertension, obesity ASA 3: a patient with a severe systemic disease that limits activity (angina , COPD, prior Myocardial infarction) ASA 4: a patient with an incapacitating disease that is a constant threat to life (CHF, renal failure) ASA 5: a moribund patient not expected to survive 24 hrs. (ruptured aneurysm) ASA 6: a declared brain- patient whose organs are being harvested. For emergent operations, add the letter E after the classification Mallampati Classification Grade 2 Sedation Plan Analgesia, Amnesia, Plan communicated to team members, Discussed options with patient/fam, Discussed risks with patient/fam The patient is an appropriate candidate to undergo the planned procedure, sedation, and anesthesia. The patient immediately re-assessed prior to indication. LOUISA CAMACHO MD Jan 25, 2019 10:57
--- NOTE | 2019-01-25 10:58 | Progress Note-Pre Operative ---
Pre-Operative Progress Note H&P Reviewed The H&P was reviewed, patient examined and no changes noted. Date Seen by Provider: Jan 25, 2019 Time Seen by Provider: 10:30 Date H&P Reviewed: Jan 25, 2019 Time H&P Reviewed: 10:30 Pre-Operative Diagnosis: family hx colon ca LOUISA CAMACHO MD Jan 25, 2019 10:58
[2019-01-25] MEDS ORDERED: HYDROcodone/APAP 5 MG/325 MG (LORTAB) TAB PO PRN (11:00)
[2019-01-25] MEDS ORDERED: ACETAMINOPHEN 325 MG TABLET PO PRN (11:00)
[2019-01-25] MEDS ORDERED: morphine INJ 10 MG/ML 1ML (SYR OR VIAL) IV PRN (11:00)
[2019-01-25] MEDS ORDERED: ONDANSETRON 4 MG/2 ML (SDV) Z0FRAN IV PRN (11:00)
--- NOTE | 2019-01-25 11:00 | Discharge Inst-Surgical ---
D/C Lap Instructions-DOUG Follow Up 5 years Activity as tolerated High Fiber Diet 25g or more per day Avoid Alcohol, Caffeine, Spicy [place] and Acid foods. Drink 64 fluid oz or more of fluids per day. Symptoms to Report: Fever over 101 degree F, Nausea/Vomiting If any problems/questions: Contact your physician or go to Emergency Room LOUISA CAMACHO MD Jan 25, 2019 11:00
[2019-01-25] MEDS ORDERED: MIDAZOLAM 2 MG/2 ML (VERSED) VIAL ONE ×5 (13:24→14:19)
[2019-01-25] MEDS ORDERED: fentaNYL INJECTION 100 MCG/2 ML AMP ONE ×2 (13:24→14:26)
[2019-01-25] MEDS ORDERED: LIDOCAINE JELLY 2% 6 ML SYRINGE ONE (13:25)
[2019-01-25 14:45] VITALS: BP 118/58
[2019-01-25 15:15] VITALS: BP 115/61
[2019-01-25 15:35] VITALS: BP 115/61
--- NOTE | 2019-01-25 17:54 | Progress Note-Post Operative ---
Post-Operative Progess Note Surgeon (s)/Maintenance Carpenter (s) Surgeon LOUISA CAMACHO MD Maintenance Carpenter: none Pre-Operative Diagnosis family hx colon ca Post-Operative Diagnosis mild chronic stage 2 ext and int hemorrhoids. Procedure & Operative Findings Date of Procedure 01/25/19 Procedure Performed/Findings Colonoscopy. Anesthesia Type CS Estimated Blood Loss Estimated blood loss (mL): minimal Specimens/Packing Specimens Removed none LOUISA CAMACHO MD Jan 25, 2019 17:54
--- NOTE | 2019-01-25 20:32 | OPERATIVE REPORT ---
DATE OF SERVICE: 01/25/2019 ATTENDING PRIMARY CARE PHYSICIAN: Dr. Thomason. PREOPERATIVE DIAGNOSIS: Screening colonoscopy with family history of colon cancer. POSTOPERATIVE DIAGNOSIS: Mild chronic stage II external and internal hemorrhoids. PROCEDURE: Colonoscopy. SURGEON: Louisa Camacho MD. ANESTHESIA: Conscious sedation. ESTIMATED BLOOD LOSS: Minimal. FINDINGS: Mild chronic stage II external and internal hemorrhoids. Prostate gland was palpable and appeared normal. Remainder of the rectum and colon appeared normal. No polyps identified. DISPOSITION: The patient tolerated the procedure well. INDICATIONS: The patient is a 73-year-old male in need of a screening colonoscopy. This gentleman has not had a colonoscopy up to this point in his life. He does not report any major issues with diarrhea nor constipation as well as no red blood per rectum nor any dark tarry stools. He does have a family history of colon cancer with his father being diagnosed with the disease at around 80 years of age. DESCRIPTION OF PROCEDURE: The patient was brought to the endoscopy suite and laid in the left lateral decubitus position. After adequate IV pain and sedative medications and conscious sedation anesthesia, a digital rectal examination was performed. Mild chronic stage II external and internal hemorrhoids were identified, which were not actively edematous nor inflamed and no bleeding. Normal sphincter tone was felt and there were no palpable masses. Prostate gland was palpable and appeared normal. The endoscope was then intubated to the anus and rectum gently insufflated. The endoscope was then advanced to the valves of [place] in the rectum with no polyps or any neoplasms identified. We then proceeded through the sigmoid colon where no diverticulosis identified. The endoscope was then advanced to the remainder of the descending, transverse and ascending colon to the cecum. These segments were normal. There were no polyps or any neoplasms identified throughout the colon or rectum. The endoscope was then slowly withdrawn while taking a second look and suctioning of residual air with no additional findings. The patient tolerated the procedure well. We will recommend continued medical management with a high fiber diet with at least 30 grams of fiber per day as well as significant amounts of water to promote soft stools on a daily basis. We will also recommend a followup colonoscopies every 5 years due to his first-degree family history of colon cancer. Job ID: [id number] DocumentID: [id number] Dictated Date: 01/25/2019 14:37:00 Lap Grinder Date: 01/25/2019 20:31:34 Dictated By: LOUISA CAMACHO MD
== END 2019-01-25 15:35 | disposition home or self-care (01) ==
LOC: ENDO 09:25
PROVIDERS: ATTEND Surgery
DX: Z12.11 Encounter for screening for malignant neoplasm of colon (principal); K64.1 Second degree hemorrhoids; Z80.0 Family history of malignant neoplasm of digestive organs; E11.9 Type 2 diabetes mellitus without complications; I10 Essential (primary) hypertension; E78.00 Pure hypercholesterolemia, unspecified; E03.9 Hypothyroidism, unspecified; R06.9 Unspecified abnormalities of breathing; I48.91 Unspecified atrial fibrillation; M17.0 Bilateral primary osteoarthritis of knee; M16.0 Bilateral primary osteoarthritis of hip; M47.9 Spondylosis, unspecified; Z79.899 Other long term (current) drug therapy; Z79.01 Long term (current) use of anticoagulants; Z87.891 Personal history of nicotine dependence; Z79.84 Long term (current) use of oral hypoglycemic drugs; Z80.3 Family history of malignant neoplasm of breast
CPT/HCPCS: 82962

== ENCOUNTER → 2019-10-03 | Outpatient (CLI) | payer MEDICARE ==
[~2019-10-03] VITALS: Ht 185 cm; Wt 159.0 kg
[~2019-10-03] MED LIST changes: +REGADENOSON 0.4 MG/5 ML SYR (LEXISCAN) IV ONE
[2019-10-03] MEDS: CATHETER FLUSH 10 ML SYR IV PRN ×2 (11:15→12:01)
[2019-10-03 12:00] VITALS: BP 153/72
--- NOTE | 2019-10-04 11:34 | STRESS TEST ---
DATE OF SERVICE: 10/03/2019 RESTING AND POST REGADENOSON TECHNETIUM-99M TETROFOSMIN SPECT CT IMAGING ORDERING PHYSICIAN: Lalitha Briscoe APRN PRIMARY PHYSICIAN: Dr. Thomason. OTHER PHYSICIAN: Dr. Yancey. CLINICAL DIAGNOSES: Shortness of breath, atrial fibrillation. Baseline images were carried out after injection of 10.15 mCi of technetium-99m Tetrofosmin. This was followed by 0.4 mg regadenoson and 32.2 mCi of technetium-99m Tetrofosmin for stress imaging. The electrocardiogram showed atrial fibrillation throughout the study. There was right bundle branch block. It did not change. The patient tolerated the procedure well. Review of images at rest and following stress does not indicate significant perfusion defects consistent with myocardial ischemia or infarction. Gated images show normal global left ventricular systolic function with normal regional wall motion. Left ventricular end diastolic volume is 125 mL. TID is absent (1.01). CONCLUSIONS: 1. This study does not indicate significant myocardial ischemia or infarction. 2. Mild to moderate cardiomegaly. 3. Normal global left ventricular systolic function with an ejection fraction of 61%. 4. Normal regional wall motion. Job ID: [id number] DocumentID: [id number] Dictated Date: 10/04/2019 09:15:55 Residential Real Estate Sales Manager Date: 10/04/2019 11:32:58 Dictated By: SHIRLEY YANCEY MD, MA, FACP, FACC,
== END ==
LOC: CARD 11:01
PROVIDERS: ATTEND Nurse Practitioner Family
DX: I08.0 Rheumatic disorders of both mitral and aortic valves (principal); I10 Essential (primary) hypertension; I48.91 Unspecified atrial fibrillation; G47.33 Obstructive sleep apnea (adult) (pediatric)
CPT/HCPCS: 78452; 93017; 93306

== ENCOUNTER → 2019-12-26 | Outpatient (CLI) | payer MEDICARE ==
[~2019-12-26] MED LIST changes: -REGADENOSON 0.4 MG/5 ML SYR (LEXISCAN) IV ONE
== END ==
LOC: RAD 12:56
PROVIDERS: ATTEND Internal Medicine Cardiovascular Disease
DX: I70.213 Atherosclerosis of native arteries of extremities with intermittent claudication, bilateral legs (principal)
CPT/HCPCS: 93923

== ENCOUNTER 2023-02-11 14:55 | Outpatient (RCR) | payer MEDICARE ==
[~2023-02-11 14:55] MED LIST changes: +ASPI-1238 PO; -ASPI-983 PO; -ENAL20TA PO; +ENAL20TA16 PO; -HYDR-3816 PO; -INSU100I29 SQ; +INSU100I30 SQ; +MULT-567 PO; -MULT1TAB69 PO; -OLOP2.5D; +OLOP2.5D12; -OXYC-465 PO; +OXYC-556 PO
== END 2023-02-12 | disposition home or self-care (01) ==
PROVIDERS: ATTEND Family Medicine
DX: M48.061 Spinal stenosis, lumbar region without neurogenic claudication (principal); I10 Essential (primary) hypertension; E11.9 Type 2 diabetes mellitus without complications

== ENCOUNTER 2023-03-10 13:04 | Outpatient (RCR) | payer MEDICARE | END 2023-03-14 | disposition home or self-care (01) | PROVIDERS: ATTEND Family Medicine | DX: M48.061 Spinal stenosis, lumbar region without neurogenic claudication (principal); I10 Essential (primary) hypertension; E11.9 Type 2 diabetes mellitus without complications ==

== ENCOUNTER → 2023-04-08 | Outpatient (CLI) | payer MEDICARE ==
[~2023-04-08] MED LIST changes: +ENAL-70 PO; -ENAL20TA16 PO; +TIMO5DRO16 OU; -TIMO5DRO27; +TIMO5DRO39; -TIMO5DRO5 OU
== END ==
LOC: CARD 12:46
PROVIDERS: ATTEND Nurse Practitioner Family
DX: I08.0 Rheumatic disorders of both mitral and aortic valves (principal)
CPT/HCPCS: 93306

== ENCOUNTER → 2023-04-14 | Outpatient (RCR) | payer MEDICARE | END | disposition home or self-care (01) | PROVIDERS: ATTEND Family Medicine | DX: M54.50 Low back pain, unspecified (principal); I10 Essential (primary) hypertension; E11.9 Type 2 diabetes mellitus without complications ==

== ENCOUNTER 2023-04-16 13:09 | Outpatient (RCR) | payer MEDICARE | END 2023-05-06 14:30 | disposition home or self-care (01) | PROVIDERS: ATTEND Family Medicine | DX: M48.061 Spinal stenosis, lumbar region without neurogenic claudication (principal); I10 Essential (primary) hypertension; E11.9 Type 2 diabetes mellitus without complications; R53.1 Weakness ==